=== PATIENT | male | born 1960 | race Caucasian/White ===

== ENCOUNTER 2021-02-20 12:37 | Emergency (ER) | payer OTHER ==
[2021-02-20 14:00] VITALS: TEMP 97.3
[2021-02-20] MEDS ORDERED: MORPHINE SULFATE 4 MG/ML SYRINGE IM STA (14:05)
--- NOTE | 2021-02-20 14:05 | ED ---
General Adult HPI - General Stated complaint: dental pain Source: patient Mode of arrival: ambulatory Limitations: no limitations - History of Present Illness Initial comments: Dictation was produced using [employer] dictation software. please excuse any grammatical, word or spelling errors. This patient was cared for during a federal and state declared state of emergency secondary to Covid 19 Chief Complaint: 60-year-old male presents with dental pain History of Present Illness: 10-year-old male with previous history of dental infection presents with dental pain. Patient states he has pain to the right anterior mandibular teeth. Patient has history of poor dentition. He has had teeth removed for infections in the past. Patient states that yesterday he started having dental pain. This complained of some mild pain to his right submandibular area. Patient having trouble breathing. Denies any constitutional symptoms. The ROS documented in this emergency department record has been reviewed and confirmed by me. Those systems with pertinent positive or negative responses have been documented in the HPI. All other systems are other negative and/or noncontributory. PHYSICAL EXAM: General Impression: Alert and oriented x3, not in acute distress HEENT: Normocephalic atraumatic, extra-ocular movements intact, pupils equal and reactive to light bilaterally, mucous membranes moist. Oral: No gingival erythema or abscess, multiple missing teeth, poor dentition no sublingual swelling, no tenderness to the submandibular area Cardiovascular: Heart regular rate and rhythm Chest: Able to complete full sentences, no retractions, no tachypnea Abdomen: abdomen soft, non-tender, non-distended, no organomegaly Musculoskeletal: Pulses present and equal in all extremities, no peripheral edema Motor: no focal deficits noted Neurological: CN II-XII grossly intact, no focal motor or sensory deficits noted Skin: Intact with no visualized rashes Psych: Normal affect and mood ED course: 60-year-old male presents to the emergency department for dental pain. Patient's symptoms likely secondary to odontogenic infection. No signs to suggest Frederic's angina vital signs upon arrival are within acceptable limits. Patient given prescription for antibiotics and analgesics. He is given IM analgesic injection. He states he has an appointment with his doctor tomorrow. Advised to follow-up as an is possible with Dentist - Related Data Previous Rx's Medication Instructions Recorded HYDROcodone/APAP 5-325MG [[place] 1 tab PO Q6HR PRN 3 Days #12 tab 02/20/21 5-325] Penicillin V Potassium [Pen Vee K] 500 mg PO BID 7 Days #14 tablet 02/20/21 Allergies Allergy/AdvReac Type Severity Reaction Status Date / Time No Known Allergies Allergy Verified 02/20/21 14:00 Review of Systems ROS Statement: Those systems with pertinent positive or pertinent negative responses have been documented in the HPI. ROS Other: All systems not noted in ROS Statement are negative. Past Medical History Past Medical History: No Reported History History of Any Multi-Drug Resistant Organisms: None Reported Past Surgical History: Heart Catheterization Additional Past Surgical History / Comment(s): tooth extractions Past Psychological History: No Psychological Hx Reported Smoking Status: Current every day smoker Past Alcohol Use History: None Reported Past Drug Use History: None Reported General Exam Limitations: no limitations Course Vital Signs 02/20/21 13:55 Temperature 97.3 F L Pulse Rate 60 Respiratory 20 Rate Blood Pressure 166/85 O2 Sat by Pulse 100 Oximetry Disposition Clinical Impression: Pain, dental Disposition: HOME SELF-CARE Condition: Fair Instructions (If sedation given, give patient instructions): Toothache (ED) Additional Instructions: follow up with dentist as soon as possible Prescriptions: HYDROcodone/APAP 5-325MG [[place] 5-325] 1 tab PO Q6HR PRN 3 Days #12 tab PRN Reason: Severe Pain Penicillin V Potassium [Pen Vee K] 500 mg PO BID 7 Days #14 tablet Is patient prescribed a controlled substance at d/c from ED?: Yes Referrals: None,Stated [Primary Care Provider] - 1-2 days Time of Disposition: 14:04
[2021-02-20 14:55] VITALS: BP 150/79; PULSE 66; RESP 16
== END 2021-02-20 14:55 | disposition home or self-care (01) ==
LOC: EC 12:37
DX: K08.89 Other specified disorders of teeth and supporting structures (principal); F17.200 Nicotine dependence, unspecified, uncomplicated
CPT/HCPCS: 96372; 99282